=== PATIENT | male | born 1945 | race Caucasian/White ===

== ENCOUNTER 2017-11-04 05:49 | Inpatient (IN) ==
[2017-11-04] MEDS ORDERED: Heparin - SQ 10,000 UNITS/ML Vial ONE (06:11)
[2017-11-04] MEDS ORDERED: Dextrose 50% in Water 50 ML Vial IV.PUSH PRN ×2 (06:29→12:20)
[2017-11-04] MEDS ORDERED: Chlorhexidine 4% Topical 120 APPLIC/120 ML Bottle TOPICAL SCH (06:30)
[2017-11-04] MEDS: Metoprolol Tartrate 25 MG Tablet PO SCH (06:38)
[2017-11-04] MEDS ORDERED: Metoprolol Tartrate 25 MG Tablet PO ONE (06:43)
[2017-11-04] MEDS ORDERED: Chlorhexidine Gluconate 2% 1 Pack (2 Cloths) TOPICAL ONE (06:43)
[2017-11-04] MEDS ORDERED: Sodium Chlor 0.9% Inj 500 ML IV.SIG SCH (07:00)
[2017-11-04] MEDS ORDERED: ceFAZolin Inj 2,000 MG in Sodium Chlor 0.9% Inj 80 ML IV.SIG SCH (07:00)
[2017-11-04] MEDS ORDERED: Insulin Regular (For Infusion) 100 UNIT in Sodium Chlor 0.9% Inj 99 ML IV.CONT PRN (07:00)
[2017-11-04] MEDS ORDERED: Sodium Chlor 0.9% Inj 300 ML IV.CONT ONE (07:30)
[2017-11-04] MEDS ORDERED: Sodium Chlor 0.9% Inj 77.5 ML, Papaverine Inj 60 MG, Nitroglycerin Inj 100 MCG, dilTIAZ... IRRIGATION SCH ×3 (07:30)
[2017-11-04] MEDS ORDERED: Tranexamic Acid Inj 1,000 MG/10 ML Ampul IV.SIG ONE (07:30)
[2017-11-04] MEDS ORDERED: Sodium Chlor 0.9% Inj 750 ML IV.CONT ONE (07:30)
[2017-11-04] MEDS ORDERED: Sodium Chloride 0.9% Irr Bot 500 ML, ceFAZolin Inj 500 MG IRRIGATION SCH ×2 (07:30)
[2017-11-04] MEDS ORDERED: Heparin - SQ 10,000 UNITS/ML Vial OTHER ONE (08:26)
[2017-11-04] MEDS ORDERED: Potassium Chloride Inj 40 MEQ/20 ML Vial ONE ×3 (08:33→12:09)
--- NOTE | 2017-11-04 11:36 | P.PNCV ---
- Note Subjective/Hospital Course: 71-year-old gentleman initially seen 10/22/17 with a history of factor V Leiden mutation (heterozygous), who presents with a progressive history of increasing shortness of breath with minimal exertion. Patient has been seen and evaluated by Dr. Schulz in the office and has undergone further workup including an echocardiogram which reveals preserved ventricular function with mild aortic stenosis. Patient underwent a coronary angiography today which revealed severe multivessel coronary artery disease with heavily calcific coronary vessels. We were consulted for surgical revascularization therapy. PMH : Aortic stenosis, Bipolar DZ, CHF, Diabetes, frequent falls GERD, Hyperlipidemia , Schizophrenia 11/04 pt electively admitted for surgery Objective: Vital Signs - 24 hr 11/04/17 06:54 Temperature 97.7 F Pulse Rate 83 Respiratory Rate 18 Blood Pressure 142/84 H Pulse Oximetry 96 Labs: Laboratory Results - last 12 hr 11/04/17 06:25 Blood Type B Positive Antibody Screen Negative MTS Gel Crossmatch See Detail - Plan (2) CAD (coronary artery disease), [place] coronary artery (4) Diabetes mellitus (2) CAD (coronary artery disease), [place] coronary artery Qualifiers: [place] vs. transplanted heart: [place] heart (4) Diabetes mellitus Qualifiers: Diabetes mellitus type: type 2
[2017-11-04] MEDS ORDERED: Protamine Sulfate Inj 50 MG/5 ML Vial IV.PUSH ONE (11:38)
[2017-11-04] MEDS ORDERED: Sugammadex Inj 200 MG/2 ML Vial IV.PUSH ONE (11:44)
[2017-11-04] MEDS ORDERED: Dexmedetomidine Inj 200 MCG/2 ML Vial IV.CONT ONE (11:45)
[2017-11-04] MEDS ORDERED: Metoprolol Inj 5 MG/5 ML Vial IV.PUSH PRN (12:20)
[2017-11-04] MEDS ORDERED: Post-op Orders (for Pharmacy) OTHER STA (12:20)
[2017-11-04] MEDS ORDERED: Ketorolac Inj 30 MG/ML (IVP) Vial IV.PUSH PRN (12:20)
[2017-11-04] MEDS ORDERED: Dexmedetomidine Inj 200 MCG in Sodium Chlor 0.9% Inj 48 ML IV.CONT PRN (12:20)
[2017-11-04] MEDS ORDERED: Albumin Human 5% Inj 250 ML IV.SIG PRN (12:20)
[2017-11-04] MEDS ORDERED: Magnesium Sulfate Inj 2 GM in Sodium Chlor 0.9% Inj 96 ML IV.SIG PRN ×4 (12:20)
[2017-11-04] MEDS ORDERED: RESP: Racemic Epinephrine 2.25% 0.5 ML Neb NEB PRN (12:20)
[2017-11-04] MEDS ORDERED: Calcium Chloride Inj 1 GM/10 ML Syringe IV.PUSH PRN (12:20)
[2017-11-04] MEDS ORDERED: Acetaminophen 325 MG Tablet PO PRN (12:20)
[2017-11-04] MEDS ORDERED: Clevidipine Inj 25 MG/50 ML VIAL IV.CONT PRN (12:20)
[2017-11-04] MEDS ORDERED: Acetaminophen 650 MG Supp RECTAL PRN (12:20)
[2017-11-04] MEDS ORDERED: Morphine Sulfate Inj 2 MG/ML Vial IV.PUSH PRN (12:20)
[2017-11-04] MEDS ORDERED: fentaNYL Citrate Inj 100 MCG/2 ML Ampul IV.PUSH PRN (12:20)
[2017-11-04] MEDS ORDERED: Potassium Chlor 20 mEq Premix 20 MEQ/100 ML PIGGYBACK IV.SIG PRN ×3 (12:20)
--- NOTE | 2017-11-04 12:20 | P.OP ---
Date of procedure: 11/04/17 Anesthesia: GETA Surgeon: Alma Durham MD Operation and Findings: PREPROCEDURE DIAGNOSES 1. Severe Multi Vessel Coronary Artery Disease. 2. Mild aortic stenosis POSTPROCEDURE DIAGNOSES Same SURGICAL PROCEDURE 1. Off-pump Coronary Artery Bypass Grafting x 3 with Left Internal Mammary Artery (BANDA) to Left Anterior Descending (LAD), reverse saphenous vein graft to Obtuse Marginal branch of the Left Circumflex artery, reverse saphenous vein graft to the Posterolateral branch of the Right Coronary artery 2. Left leg Endoscopic Vein [place] 3. Intraoperative Vein Mapping. SURGEON Alma Durham MD CHECKER IN Ty Sung, MARY Flowers, [facility] ANESTHESIA General endotracheal SALES SUPPORT MANAGER Tracey Vergara, PARVEEN Barker MD PREPARATION ChloraPrep. COUNTS Needle, sponge, and instrument counts were correct. DRAINS Two 32-[place] mediastinal tubes. COMPLICATIONS None. INDICATIONS FOR PROCEDURE The patient is a 71-year-old presenting with chest pain. Patient was noted to have multi-vessel coronary artery disease. The patient is being brought to the operating room for surgical revascularization therapy. PROCEDURE Patient was brought to the operating room and placed supine on the OR table. Following the induction of adequate general endotracheal anesthesia and placement of appropriate monitoring devices, intraoperative vein mapping was performed which revealed good-caliber conduit in bilateral lower extremities. Intraoperative SARA revealed mild to moderate aortic stenosis with trivial aortic insufficiency. The noncoronary leaflet appeared calcified with the other 2 leaflets were mobile. I reviewed the SARA with Dr. Schulz in the operating room, and it was a collective decision to leave the aortic valve alone at this time since he was more towards the mild side. The patient was then prepped and draped in standard sterile fashion. Next, 2500 units of intravenous heparin was given. The left greater saphenous vein was harvested endoscopically. This appeared to be a useable-caliber conduit. Simultaneously, a median sternotomy was performed and the left internal mammary artery dissected free off the posterior sternal table. The patient was systemically heparinized and anticoagulation monitored by serial ACT measurements. The internal mammary artery had excellent pulsatile flow in it and was a good- caliber conduit. The pericardium was then divided in the midline, the cradle created and targets analyzed. At this point, all anastomoses were performed in a beating-heart fashion using the [employer] stabilizing system. The left internal mammary artery was anastomosed to the distal LAD (2.25 mm) in an end-to-side fashion using 7-0 Prolene. Of note, the proximal and mid LAD were completely and diffusely calcified. Segment of saphenous vein graft was then anastomosed to the OM1 (1.75 mm) in an end-to-side fashion using 7-0 Prolene. This was a very heavily calcified vessel as well. The final segment was anastomosed to the RPLB (1.75 mm) in an end-to-side fashion using 7-0 Prolene. The proximal anastomoses were then constructed to the ascending aorta in a running manner using 6-0 Prolene. All anastomotic sites were inspected and appeared to be hemostatic and patent. Protamine solution was given. Strict hemostasis was assured. The closure was undertaken. 2 chest tubes were placed. The pericardium was reapproximated in the midline. The sternum was approximated using sternal wires. The muscular and fascial layer were then closed in 3 layers. The endoscopic vein harvest site was closed in 2 layers. The patient tolerated the procedure well and was transferred to CVICU in stable condition.
[2017-11-04] MEDS: Insulin Regular (For Infusion) 100 UNIT in Sodium Chlor 0.9% Inj 99 ML IV.CONT PRN (12:45)
[2017-11-04] MEDS ORDERED: fentaNYL Citrate Inj 250 MCG/5 ML Ampul ONE (13:02)
--- NOTE | 2017-11-04 13:23 | XR ---
EXAM DATE: 11/04/2017 1:10 PM EDT AGE/SEX: 71 years / Male INDICATIONS: Post CABG. CLINICAL DATA: This is the patient's initial encounter. Patient reports that signs and symptoms have been present for 1 day and indicates a pain score of Nonresponsive. MEDICAL/SURGICAL HISTORY: Cardiovascular disease. None. COMPARISON: [facility], CHEST 2V PA&LAT, 10/22/2017. . FINDINGS: Median sternotomy wires are noted status post fracture noted. Chest tubes are noted. There is no evid ence of pneumothorax. Left basilar atelectasis is noted. A nasogastric tube has its tip in the distal esophagus. An endotracheal tube has its tip 3 cm above the brian. Right-sided central line has its tip at the junction of the superior vena cava and right atrium. CONCLUSION: 1. Left basilar atelectasis. 2. Nasogastric tube has its tip in the distal esophagus. 3. Endotracheal tube, right-sided central line and chest tubes are in good positions. Electronically signed by: James Banks MD 11/04/2017 1:21 PM EDT
[2017-11-04] MEDS: Calcium Chloride Inj 1 GM in Sodium Chlor 0.9% Inj 100 ML IV.SIG PRN ×3 (13:58→16:20)
--- NOTE | 2017-11-04 14:13 | P.DCO ---
- Diagnosis (2) CAD (coronary artery disease), [place] coronary artery (4) Diabetes mellitus - Home Health Nursing Order: Medical education, Signs/symptoms of disease process, Wound care and dressing changes, Nursing assessment with vital signs Instructions: Heart and Vascular Surgery patients *Special attention to sternal dressing Mandatory frequency Assess and evaluation, 4 days in a row The next week 3X week 2 times a week for 4 weeks 1 time a week for 5 weeks Schedule Heart and Vascular patients for full 60 day certification period Initial visit Review Open Heart Surgery Discharge Instructions (Sternal precautions, Activity, Elastic hose, Incision care, Driving, Incentive spirometry, Smoking, [place], Work and other) Need Betadine to paint incision Medication reconciliation Importance of follow up care/ check on appointments Make calendar record temperature daily When to call [facility] at Home nurse, review instructions, phone list Incentive Spirometry, demonstration Visit 1- Begin discharge instruction for patient family and/ or caregiver using teach back method- Signs and symptoms of infection Disease characteristics Medicines and side effects Foods and nutrition/ appetite Infection control/ hand washing/ hygiene Visit 2- Continue teaching Discharge instructions- include additional information on smoking cessation , sternal dressing (sternal vac) Visit 3- Continue teaching- Cough and deep breathing, incision monitoring. Choose my plate Visit 4- Continue teaching- Discuss limitations Discuss how they are feeling Discuss progress toward goals Remaining visits- continue teaching and monitoring For any questions please call : Thursday 8am-5pm Heart & Vascular Surgery Office ( Dr. Durham & Dr. Jo), After Hours / Nights (5pm -8am) Weekends and Holidays Please call [facility] Cardiac Intermediate Care Unit (CIC) Charge Nurse PREVENA Single Use Negative Wound Therapy System Caregiver Instruction Sheet 1. A Prevena dressing system was applied to the chest incision during surgery , to promote wound healing. It works via a suction device (negative pressure wound therapy) to remove low to moderate levels of exudate (drainage) and infectious materials. We recommend that the device stay in place for up to seven days, from day of surgery. 2. Day of Surgery___/ Day of Removal ____/ 3. The dressing should only be removed by a health clinical care coordinator. Please arrange removal of device to coincide with Home Health visit and or with Nursing staff at Rehab 4. If skin reddening or irritation of skin occurs, or excessive drainage, please notify the Cardiovascular Surgeons office at [phone]. 5. Light showering is permissible; however the pump should be disconnected and placed in safe location, where it will not get wet. The dressing should not be exposed to direct spray or submerged in water. No bath tub / shower only. Ensure the end of the tubing attached to the dressing is facing down so that water does not enter the top of the tube. 6. To remove Prevena dressing: press purple button to turn off device / remove the suction. Then disconnect the tubing from the pump. The fixation strips should be stretched away from the skin and the dressing lifted at one corner and peeled back until it has been fully removed. 7. After removal, it is ok to shower daily using liquid dial soap and clean wash cloth, rinse and pat dry, and leave incision open to air dry. For any concerns regarding Prevena dressing, and or wounds, please contact Ines Jameson, patient navigator at [phone] or notify the Cardiovascular Surgeons office at [phone]. Incentive spirometry Q1 hr x 10, while awake, also use acapella device hourly whole awake Sternal Breast Bone Precautions: NO pushing or pulling, ( pt must use sternal pillow to support chest with all activities and with coughing ( takes up to 3 months breast bone to heal ) Daily incision care: ok to shower daily, no tub bath. Wash all incisions with liquid dial soap, clean wash cloth to each site, rinse and pat dry. Observe for any signs of infection, such as drainage which is dark yellow, payan, green or foul smelling. Immediately report to the surgeon any drainage from the chest incision, or legs, and for any abnormal drainage from the chest tube sites. Notify surgeon if any temp >101.5 degrees F. When specialty dressing removed/ or if you do not have one, continue to shower daily as above, then rinse and pat incision dry and paint with betadine daily x 5 days. Allow steri strips to fall off if you have any. Avoid lotions, creams, salves, oils, etc. for the first month Please see attached forms for additional instructions regarding post Open Heart specialty wound vacuum dressings. MEAGHAN or Prevena , Dressing to be removed by Nursing staff on F/U appointment: as per DC instructions: PCP in 2 weeks, CV surgeon 2 weeks, Clutch Inspector 3-4 weeks For any questions regarding incisions/ dressing / meds / post op care or above Symptoms, Thursday 8am-5pm Heart & Vascular Surgery Office ( Dr. Durham & Dr. Jo), After Hours / Nights (5pm -8am) Weekends and Holidays Please call [facility] Cardiac Intermediate Care Unit (CIC) Charge Nurse - Case Management Consult Yes - Certification I have seen patient Silvestre Álvarez on 11/04/17. My clinical findings support the need for the requested home health care services because: Deconditioned with increased weakness I certify that my clinical findings support that this patient is homebound because: Post-op weakness (2) CAD (coronary artery disease), [place] coronary artery Qualifiers: [place] vs. transplanted heart: [place] heart (4) Diabetes mellitus Qualifiers: Diabetes mellitus type: type 2
[2017-11-04] MEDS: ceFAZolin Inj 2,000 MG in Sodium Chlor 0.9% Inj 80 ML IV.SIG SCH (20:11)
[2017-11-04] MEDS: Amiodarone 200 MG Tablet PO SCH (20:12)
[2017-11-05] MEDS: Calcium Chloride Inj 1 GM in Sodium Chlor 0.9% Inj 100 ML IV.SIG PRN (00:18)
[2017-11-05] MEDS: Insulin Regular (For Infusion) 100 UNIT in Sodium Chlor 0.9% Inj 99 ML IV.CONT PRN (00:19)
[2017-11-05] MEDS: ceFAZolin Inj 2,000 MG in Sodium Chlor 0.9% Inj 80 ML IV.SIG SCH ×3 (03:00→20:55)
[2017-11-05 05:36] LABS: Hemoglobin 15.1 gm/dL (13.0-17.0); Mean Corpuscular Hemoglobin 31.7 pg (27.0-34.0); Mean Corpuscular Volume 88.2 fL (80.0-100.0); Mean Platelet Volume 6.7 fL (7.0-11.0); Platelet Count 190 th/mm3 (150-450); Red Blood Count 4.76 mil/mm3 (4.50-5.90); Red Cell Distribution Width 12.9 % (11.6-17.2); White Blood Count 12.5 th/mm3 (4.0-11.0)
--- NOTE | 2017-11-05 06:02 | XR ---
EXAM DATE: 11/05/2017 4:12 AM EDT AGE/SEX: 71 years / Male INDICATIONS: Follow up CABG. CLINICAL DATA: This is the patient's subsequent encounter. Patient reports that signs and symptoms h ave been present for 3 days and indicates a pain score of 5/10. MEDICAL/SURGICAL HISTORY: Cardiovascular disease. CABG. COMPARISON: [facility], CHEST 1V SINGLE AP, 11/04/2017. . FINDINGS: There has been interval extubation and removal of nasogastric tube. Central line and thoracostomy tub es remain in place. Lung volumes are diminished with mild perihilar and basilar parenchymal opacity, left worse than right. Visualized cardiac contours are unchanged. CONCLUSION: Interval extubation with slight deterioration in aeration. Electronically signed by: Ty Juarez MD 11/05/2017 6:01 AM EDT
[2017-11-05 06:06] LABS: Anion Gap 11 meq/L (5-15); Blood Urea Nitrogen 16 mg/dL (7-18); Calcium 8.5 mg/dL (8.5-10.1); Chloride 107 meq/L (98-107); Glomerular Filtration Rate Greater Than 89 mL/min (>89); Glucose,Random 126 mg/dL (74-106); Magnesium 2.1 mg/dL (1.5-2.5); Potassium 3.9 meq/L (3.5-5.1); Sodium 141 meq/L (136-145)
[2017-11-05] MEDS: Amiodarone 200 MG Tablet PO SCH ×2 (08:16→20:55)
[2017-11-05] MEDS ORDERED: Dextrose 50% in Water 50 ML Vial IV.PUSH PRN (08:52)
[2017-11-05] MEDS ORDERED: Bisacodyl 10 MG Supp RECTAL PRN (08:52)
[2017-11-05] MEDS ORDERED: Sod Phosphate/Sod Biphosphate (Adult) Enema 133 ML Bottle RECTAL PRN (08:52)
--- NOTE | 2017-11-05 09:09 | P.PNCV ---
- Note Subjective/Hospital Course: 71-year-old gentleman initially seen 10/22/17 with a history of factor V Leiden mutation (heterozygous), who presents with a progressive history of increasing shortness of breath with minimal exertion. Patient has been seen and evaluated by Dr. Schulz in the office and has undergone further workup including an echocardiogram which reveals preserved ventricular function with mild aortic stenosis. Patient underwent a coronary angiography today which revealed severe multivessel coronary artery disease with heavily calcific coronary vessels. We were consulted for surgical revascularization therapy. PMH : Aortic stenosis, Bipolar DZ, CHF, Diabetes, frequent falls GERD, Hyperlipidemia , Schizophrenia 11/04 pt electively admitted for surgery surgery: 11/04 SURGICAL PROCEDURE 1. Off-pump Coronary Artery Bypass Grafting x 3 with Left Internal Mammary Artery (BANDA) to Left Anterior Descending (LAD), reverse saphenous vein graft to Obtuse Marginal branch of the Left Circumflex artery, reverse saphenous vein graft to the Posterolateral branch of the Right Coronary artery 2. Left leg Endoscopic Vein [place] extubated after surgery crystalloid 3500cc, cell saver 561, EBL 1000cc 11/05 doing well, on nasal cannula no air leak in chest tubes start BB , in NSR , BP stable wean off Insulin gtt stable for transfer to stepdown Objective: Vital Signs - 24 hr 11/04/17 12:45 11/04/17 13:15 11/04/17 14:00 Temperature 97.6 F 98.0 F Pulse Rate 77 71 77 Respiratory Rate 12 8 L Blood Pressure 99/48 L 118/60 Pulse Oximetry 98 98 11/04/17 15:00 11/04/17 15:30 11/04/17 16:15 Temperature 98.6 F 97.9 F Pulse Rate 82 Respiratory Rate 10 L Blood Pressure 130/66 Pulse Oximetry 97 97 11/04/17 16:28 11/04/17 16:35 11/04/17 17:47 Temperature Pulse Rate 76 77 Respiratory Rate 20 Blood Pressure Pulse Oximetry 97 11/04/17 18:00 11/04/17 19:00 11/04/17 19:52 Temperature 98.6 F 100.3 F H Pulse Rate 86 88 Respiratory Rate 22 18 Blood Pressure 131/76 Pulse Oximetry 96 97 11/04/17 20:26 11/04/17 23:00 11/04/17 23:12 Temperature 100.4 F H 98.6 F Pulse Rate 93 H Respiratory Rate 22 22 Blood Pressure 136/81 Pulse Oximetry 96 11/05/17 03:00 11/05/17 07:00 Temperature 98.4 F 98.6 F Pulse Rate 96 H 86 Respiratory Rate 22 18 Blood Pressure 127/80 110/57 L Pulse Oximetry 96 96 GENERAL: A&O x 3 SKIN: Warm and dry. prevena dressing to chest , vazquez wrap to left leg HEAD: Normocephalic. EYES: No scleral icterus. No injection or drainage. NECK: Supple, trachea midline. No JVD or lymphadenopathy. CARDIOVASCULAR: Regular rate and rhythm without murmurs, gallops, or rubs. no edema RESPIRATORY: Breath sounds equal bilaterally. No accessory muscle use. chest tube to wall suction, no air leak / drained 190cc/ 12 hrs GASTROINTESTINAL: Abdomen soft, non-tender, nondistended. MUSCULOSKELETAL: No cyanosis, or edema. BACK: Nontender without obvious deformity. No CVA tenderness. Labs: Laboratory Results - last 12 hr 11/04/17 11/04/17 11/05/17 21:24 22:23 00:21 WBC RBC Hgb Hct MCV MCH MCHC RDW Plt Count MPV Sodium Potassium Chloride Carbon Dioxide Anion Gap BUN Creatinine Estimated GFR POC Glucose 121 H 119 H 119 H Random Glucose Calcium Magnesium 11/05/17 11/05/17 11/05/17 01:23 04:10 05:00 WBC 12.5 H RBC 4.76 Hgb 15.1 Hct 42.0 MCV 88.2 MCH 31.7 MCHC 36.0 RDW 12.9 Plt Count 190 MPV 6.7 L Sodium Potassium Chloride Carbon Dioxide Anion Gap BUN Creatinine Estimated GFR POC Glucose 108 126 H Random Glucose Calcium Magnesium 11/05/17 11/05/17 11/05/17 05:00 05:45 07:16 WBC RBC Hgb Hct MCV MCH MCHC RDW Plt Count MPV Sodium 141 Potassium 3.9 Chloride 107 Carbon Dioxide 23.0 Anion Gap 11 BUN 16 Creatinine 0.84 Estimated GFR Greater than 89 POC Glucose 122 H 116 H Random Glucose 126 H Calcium 8.5 Magnesium 2.1 Result Diagrams: 11/05/17 05:00 11/05/17 05:00 Pulmonary: NSR with occasional PVC - Plan (2) CAD (coronary artery disease), [place] coronary artery Plan: ASA, statin, BB , plavix OOB ambulate pulm toileting no diuresis transfer to stepdown (3) Factor V Leiden mutation Plan: HGB , plt stable (4) Diabetes mellitus Plan: on insulin sliding scale diabetic diet start metformin in am (2) CAD (coronary artery disease), [place] coronary artery Qualifiers: [place] vs. transplanted heart: [place] heart (4) Diabetes mellitus Qualifiers: Diabetes mellitus type: type 2
[2017-11-05] MEDS: Multivitamin/Minerals Therapeutic Tablet PO SCH (09:20)
[2017-11-05] MEDS: Metoprolol Tartrate 25 MG Tablet PO SCH ×3 (09:20→23:01)
--- NOTE | 2017-11-05 09:43 | P.DIET ---
Nutritional Evaluation Screening comments: MDC for diet education s/p CABG x 3 on 11/04 received. Patient Navigator to provide education. Consult RD if complexities with diet education arise.
[2017-11-05] MEDS: Insulin NovoLOG Aspart Correctional Sugar Inj SQ SCH ×4 (11:50→23:03)
--- NOTE | 2017-11-05 20:48 | ECG ---
Date Performed: 11/05/2017 Time Performed: 04:42:40 PTAGE: 71 years EKG: Sinus rhythm Severe right axis deviation Possible inferior infarct - age undetermined Right bundle branch block S luis the previous tracing, no significant change noted Abnormal ECG PREVIOUS TRACING : 10/22/2017 12.45 DOCTOR: Daniel Leach Interpretating Date/Time 11/05/2017 20:48:10
[2017-11-05] MEDS: Docusate Sodium 100 MG Capsule PO SCH (20:56)
[2017-11-06] MEDS: Insulin NovoLOG Aspart Correctional Sugar Inj SQ SCH ×5 (02:54→22:00)
[2017-11-06] MEDS: ceFAZolin Inj 2,000 MG in Sodium Chlor 0.9% Inj 80 ML IV.SIG SCH (05:39)
[2017-11-06 07:04] LABS: Baso % (Auto) 0.2 % (0.0-2.0); Eos % (Auto) 0.1 % (0.0-4.0); Hematocrit 41.6 % (39.0-51.0); Hemoglobin 14.8 gm/dL (13.0-17.0); Lymph # (Auto) 1.1 th/mm3 (1.0-4.8); Lymph % (Auto) 8.1 % (9.0-44.0); Mean Corpuscular HGB Conc 35.6 % (32.0-36.0); Mean Corpuscular Hemoglobin 31.9 pg (27.0-34.0); Mean Corpuscular Volume 89.6 fL (80.0-100.0); Mean Platelet Volume 6.7 fL (7.0-11.0); Mono # (Auto) 1.1 th/mm3 (0.0-0.9); Neut # (Auto) 11.6 th/mm3 (1.8-7.7); Neut % (Auto) 83.6 % (16.0-70.0); Platelet Count 182 th/mm3 (150-450); Red Blood Count 4.65 mil/mm3 (4.50-5.90); White Blood Count 13.8 th/mm3 (4.0-11.0)
[2017-11-06 07:07] LABS: Anion Gap 9 meq/L (5-15); Blood Urea Nitrogen 21 mg/dL (7-18); Calcium 8.4 mg/dL (8.5-10.1); Carbon Dioxide 26.9 meq/L (21.0-32.0); Chloride 105 meq/L (98-107); Glomerular Filtration Rate Greater Than 89 mL/min (>89); Glucose,Random 135 mg/dL (74-106); Magnesium 2.2 mg/dL (1.5-2.5); Potassium 3.8 meq/L (3.5-5.1); Sodium 141 meq/L (136-145)
[2017-11-06] MEDS: Multivitamin/Minerals Therapeutic Tablet PO SCH (08:36)
[2017-11-06] MEDS: Amiodarone 200 MG Tablet PO SCH ×2 (08:36→21:45)
[2017-11-06] MEDS: Docusate Sodium 100 MG Capsule PO SCH ×2 (08:36→21:45)
[2017-11-06] MEDS: Polyethylene Glycol 3350 17 GM Packet PO SCH (08:37)
[2017-11-06] MEDS: Metoprolol Tartrate 25 MG Tablet PO SCH ×3 (08:39→21:45)
--- NOTE | 2017-11-06 11:34 | P.PNCV ---
- Note Subjective/Hospital Course: 71-year-old gentleman initially seen 10/22/17 with a history of factor V Leiden mutation (heterozygous), who presents with a progressive history of increasing shortness of breath with minimal exertion. Patient has been seen and evaluated by Dr. Schulz in the office and has undergone further workup including an echocardiogram which reveals preserved ventricular function with mild aortic stenosis. Patient underwent a coronary angiography today which revealed severe multivessel coronary artery disease with heavily calcific coronary vessels. We were consulted for surgical revascularization therapy. PMH : Aortic stenosis, Bipolar DZ, CHF, Diabetes, frequent falls GERD, Hyperlipidemia , Schizophrenia 11/04 pt electively admitted for surgery surgery: 11/04 SURGICAL PROCEDURE 1. Off-pump Coronary Artery Bypass Grafting x 3 with Left Internal Mammary Artery (BANDA) to Left Anterior Descending (LAD), reverse saphenous vein graft to Obtuse Marginal branch of the Left Circumflex artery, reverse saphenous vein graft to the Posterolateral branch of the Right Coronary artery 2. Left leg Endoscopic Vein [place] extubated after surgery crystalloid 3500cc, cell saver 561, EBL 1000cc 11/05 doing well, on nasal cannula no air leak in chest tubes start BB , in NSR , BP stable wean off Insulin gtt stable for transfer to stepdown 11/06 up in chair, on room air chest tubes removed without difficulty increase BB, start home TARA in am resume metformin / possible dc Thursday Objective: Vital Signs - 24 hr 11/05/17 12:00 11/05/17 12:47 11/05/17 13:25 Temperature Pulse Rate 86 87 Respiratory Rate Blood Pressure Pulse Oximetry 97 11/05/17 13:36 11/05/17 14:00 11/05/17 14:54 Temperature 98.4 F Pulse Rate 88 92 H 90 Respiratory Rate 18 16 Blood Pressure 135/74 Pulse Oximetry 93 L 11/05/17 15:00 11/05/17 16:20 11/05/17 17:16 Temperature Pulse Rate 96 H 103 H 106 H Respiratory Rate Blood Pressure Pulse Oximetry 11/05/17 18:13 11/05/17 19:00 11/05/17 20:00 Temperature 98.3 F Pulse Rate 104 H 110 H 110 H Respiratory Rate 16 Blood Pressure 133/79 Pulse Oximetry 91 L 11/05/17 20:25 11/05/17 21:00 11/05/17 22:00 Temperature Pulse Rate 114 H 114 H 100 H Respiratory Rate 24 Blood Pressure Pulse Oximetry 11/05/17 23:00 11/06/17 00:00 11/06/17 01:00 Temperature 98 F Pulse Rate 95 H 84 88 Respiratory Rate 18 Blood Pressure 127/84 Pulse Oximetry 91 L 11/06/17 02:00 11/06/17 03:00 11/06/17 04:00 Temperature 98.2 F Pulse Rate 86 91 H 87 Respiratory Rate 20 Blood Pressure 132/74 Pulse Oximetry 96 11/06/17 05:00 11/06/17 06:00 11/06/17 07:00 Temperature 98.6 F Pulse Rate 93 H 92 H 95 H Respiratory Rate 17 Blood Pressure 130/73 Pulse Oximetry 95 11/06/17 08:25 Temperature Pulse Rate 88 Respiratory Rate 18 Blood Pressure Pulse Oximetry 97 GENERAL: A&O x 3 SKIN: Warm and dry. prevena dressing to chest / left leg incision intact well approximated HEAD: Normocephalic. EYES: No scleral icterus. No injection or drainage. NECK: Supple, trachea midline. No JVD or lymphadenopathy. CARDIOVASCULAR: Regular rate and rhythm without murmurs, gallops, or rubs. RESPIRATORY: Breath sounds equal bilaterally. No accessory muscle use. chest tube removed without difficulty GASTROINTESTINAL: Abdomen soft, non-tender, nondistended. MUSCULOSKELETAL: No cyanosis, or edema. BACK: Nontender without obvious deformity. No CVA tenderness. Labs: Laboratory Results - last 12 hr 11/06/17 11/06/17 11/06/17 02:40 05:45 05:45 WBC 13.8 H RBC 4.65 Hgb 14.8 Hct 41.6 MCV 89.6 MCH 31.9 MCHC 35.6 RDW 13.0 Plt Count 182 MPV 6.7 L Neut % (Auto) 83.6 H Lymph % (Auto) 8.1 L Dawson % (Auto) 8.0 Eos % (Auto) 0.1 Baso % (Auto) 0.2 Neut # (Auto) 11.6 H Lymph # (Auto) 1.1 Dawson # (Auto) 1.1 H Eos # (Auto) 0.0 Baso # (Auto) 0.0 WBC Differential . Differential Comment Auto diff final Sodium 141 Potassium 3.8 Chloride 105 Carbon Dioxide 26.9 Anion Gap 9 BUN 21 H Creatinine 0.83 Estimated GFR Greater than 89 POC Glucose 139 H Random Glucose 135 H Calcium 8.4 L Magnesium 2.2 11/06/17 11/06/17 06:46 07:52 WBC RBC Hgb Hct MCV MCH MCHC RDW Plt Count MPV Neut % (Auto) Lymph % (Auto) [place] % (Auto) Eos % (Auto) Baso % (Auto) Neut # (Auto) Lymph # (Auto) Dawson # (Auto) Eos # (Auto) Baso # (Auto) WBC Differential Differential Comment Sodium Potassium Chloride Carbon Dioxide Anion Gap BUN Creatinine Estimated GFR POC Glucose 146 H 162 H Random Glucose Calcium Magnesium Result Diagrams: 11/06/17 05:45 11/06/17 05:45 - Plan (1) S/P CABG x 3 Plan: ASA, statin , plavix , amiodarone OOB, ambulate pulm toileting chest tubes dc CM eval for [facility] (2) CAD (coronary artery disease), [place] coronary artery Plan: ASA, statin, BB , plavix OOB ambulate pulm toileting no diuresis transfer to stepdown (3) Factor V Leiden mutation Plan: HGB , plt stable (4) Diabetes mellitus Plan: on insulin sliding scale diabetic diet start metformin (5) Bipolar 1 disorder Plan: home meds resumed (2) CAD (coronary artery disease), [place] coronary artery Qualifiers: [place] vs. transplanted heart: [place] heart (4) Diabetes mellitus Qualifiers: Diabetes mellitus type: type 2
[2017-11-06 16:03] VITALS: O2SAT 92
--- NOTE | 2017-11-07 05:23 | XR ---
EXAM DATE: 11/07/2017 5:16 AM EDT AGE/SEX: 71 years / Male INDICATIONS: Shortness of breath, possible pneumothorax. CLINICAL DATA: This is the patient's subsequent encounter. Patient reports that signs and symptoms h ave been present for 4 - 6 days and indicates a pain score of 3/10. MEDICAL/SURGICAL HISTORY: Cardiovascular disease. CABG. COMPARISON: [facility] [place] 1V SINGLE AP, 11/05/2017. . FINDINGS: Mild basilar predominant parenchymal consolidation again noted, left more so than right but both side s are improved in the interim. No large effusion. No left pneumothorax seen. There is some lucency of the right upper lung but without a perceptible pleural reflection. Mediastinal drain and left chest tube has been removed. Right internal jugular central venous cathete r remains in place. CONCLUSION: 1. Improving bibasilar atelectasis. 2. Questionable right pneumothorax although a distinct pleural reflection is not demonstrated. 3. Mediastinal drain and left chest tube removed in the interim. Electronically signed by: Ty Pérez MD 11/07/2017 5:21 AM EDT
[2017-11-07] MEDS ORDERED: Lisinopril 5 MG Tablet PO SCH (09:00)
[2017-11-07] MEDS: Docusate Sodium 100 MG Capsule PO SCH (09:44)
[2017-11-07] MEDS: Multivitamin/Minerals Therapeutic Tablet PO SCH (09:44)
[2017-11-07] MEDS: Metoprolol Tartrate 25 MG Tablet PO SCH (09:45)
[2017-11-07] MEDS: Amiodarone 200 MG Tablet PO SCH (09:45)
[2017-11-07] MEDS: Polyethylene Glycol 3350 17 GM Packet PO SCH (09:46)
[2017-11-07] MEDS: Insulin NovoLOG Aspart Correctional Sugar Inj SQ SCH (09:54)
--- NOTE | 2017-11-07 11:12 | P.DS ---
Date of admission: 11/04/17 05:49 Primary care physician: No Primary Care Physician Attending physician on discharge: Alma Durham Anticipated date of discharge: 11/07/17 Brief History from admission: 71-year-old gentleman initially seen 10/22/17 with a history of factor V Leiden mutation (heterozygous), who presents with a progressive history of increasing shortness of breath with minimal exertion. Patient has been seen and evaluated by Dr. Schulz in the office and has undergone further workup including an echocardiogram which reveals preserved ventricular function with mild aortic stenosis. Patient underwent a coronary angiography today which revealed severe multivessel coronary artery disease with heavily calcific coronary vessels. We were consulted for surgical revascularization therapy. PMH : Aortic stenosis, Bipolar DZ, CHF, Diabetes, frequent falls GERD, Hyperlipidemia , Schizophrenia DS: Diagnosis - Discharge Diagnosis (1) CAD (coronary artery disease), yuhaaviatam coronary artery Status: Acute (2) Factor V Leiden mutation Status: Acute (3) Diabetes mellitus Status: Acute (4) Bipolar 1 disorder Status: Acute (5) S/P CABG x 3 Status: Acute DS: Medications - Discharge Medications Prescriptions: amiodarone 200 mg PO Q12HR #28 tab clopidogrel [Plavix] 75 mg PO DAILY #30 tab docusate sodium [DOK] 100 mg PO BID #60 cap hydrocodone-acetaminophen 1 tab PO Q4H PRN #40 tab PRN Reason: Pain Scale 1 To 5 lisinopril 5 mg PO DAILY #30 tab metoprolol tartrate 25 mg PO BID #60 tab DS: Summary Hospital Course: 11/04 pt electively admitted for surgery surgery: 11/04 SURGICAL PROCEDURE 1. Off-pump Coronary Artery Bypass Grafting x 3 with Left Internal Mammary Artery (BANDA) to Left Anterior Descending (LAD), reverse saphenous vein graft to Obtuse Marginal branch of the Left Circumflex artery, reverse saphenous vein graft to the Posterolateral branch of the Right Coronary artery 2. Left leg Endoscopic Vein [place] extubated after surgery crystalloid 3500cc, cell saver 561, EBL 1000cc 11/05 doing well, on nasal cannula no air leak in chest tubes start BB , in NSR , BP stable wean off Insulin gtt stable for transfer to stepdown 11/06 up in chair, on room air chest tubes removed without difficulty increase BB, start home TARA in am resume metformin / possible dc Thursday11/07/17 Doing well, ready for DC - Time Spent with Patient Total time spent providing and/or coordinating discharge services: Greater than 30 minutes - Quality: AMI Clinical Trial Participant: No - Quality: VTE Deep Vein Thrombosis/Pulmonary Embolism Present on Admission: No Exam Vital signs: Vital Signs 11/06/17 12:00 11/06/17 13:00 11/06/17 14:00 Temperature Pulse Rate 113 H 103 H 110 H Respiratory Rate 18 Blood Pressure Pulse Oximetry 11/06/17 15:00 11/06/17 16:00 11/06/17 18:00 Temperature 97.6 F Pulse Rate 105 H 107 H 113 H Respiratory Rate 16 Blood Pressure 149/84 H Pulse Oximetry 92 L 11/06/17 19:00 11/06/17 20:00 11/06/17 20:19 Temperature 97.8 F Pulse Rate 111 H 105 H 105 H Respiratory Rate 16 20 Blood Pressure 116/72 Pulse Oximetry 92 L 11/06/17 20:20 11/06/17 21:00 11/06/17 22:00 Temperature Pulse Rate 107 H 99 H Respiratory Rate Blood Pressure Pulse Oximetry 92 L 11/06/17 23:00 11/07/17 00:00 11/07/17 01:00 Temperature 98.8 F Pulse Rate 102 H 90 91 H Respiratory Rate 16 Blood Pressure 127/74 Pulse Oximetry 92 L 11/07/17 02:00 11/07/17 03:00 11/07/17 04:00 Temperature 98.9 F Pulse Rate 91 H 95 H 91 H Respiratory Rate 16 Blood Pressure 123/66 Pulse Oximetry 92 L 11/07/17 05:00 11/07/17 05:52 11/07/17 07:00 Temperature 97.3 F L Pulse Rate 94 H 95 H 99 H Respiratory Rate 20 Blood Pressure 137/77 Pulse Oximetry 92 L 11/07/17 08:00 11/07/17 08:11 11/07/17 09:00 Temperature Pulse Rate 98 H 98 H 106 H Respiratory Rate 19 Blood Pressure Pulse Oximetry 92 L 11/07/17 10:00 Temperature Pulse Rate 91 H Respiratory Rate Blood Pressure Pulse Oximetry Intake & Output 11/06/17 11/07/17 11/07/17 18:59 06:59 18:59 Intake Total 640 / 640 480 / 480 Output Total 300 / 300 Balance 340 / 340 480 / 480 Weight 89.8 kg Intake: Oral 640 / 640 480 / 480 Output: Urine 300 / 300 Other: # Voids 4 2 Date of Last Bowel Movement 11/06/17 11/07/17 - Constitutional no acute distress - Routine HEENT Exam Head: Present: normocephalic, atraumatic Eye: Present: EOMI, PERRL, normal accommodation ENT: Present: mucous membranes moist - Routine Neck Exam Present: supple, full ROM - Routine Respiratory Exam Present: CTA bilaterally - Routine Cardiovascular Exam Present: RRR - Routine Abdominal Exam Present: soft, normoactive bowel sounds - Routine Extremities Exam Present: pulses intact - Routine Skin Exam Present: intact Comments: wound is clean and dry - Routine Neurological Exam Present: alert, oriented X3 Results Procedures completed during hospitalization: CABG x 3 Labs on day of discharge: Labs from last 24 hours 11/07/17 11/06/17 11/06/17 09:43 20:12 17:00 POC Glucose 185 H 179 H 195 H MTS Gel Crossmatch 11/06/17 11/04/17 11:22 06:25 POC Glucose 185 H MTS Gel Crossmatch See Detail - Impressions ITS Impressions Chest X-Ray 11/07/17 06:00 CONCLUSION: 1. Improving bibasilar atelectasis. 2. Questionable right pneumothorax although a distinct pleural reflection is not demonstrated. 3. Mediastinal drain and left chest tube removed in the interim. Discharge Plan - Discharge Disposition Patient Disposition: /Home Health Service - Discharge Condition Condition: Good - Discharge Order Discharge Orders: Discharge Order (Routine); Ordered 11/07/17 Ordered By: Olga Jo - Discharge Details Anticipated Discharge Date: 11/07/17 - Physicians Team Primary Care Provider: Primary Care Melvina Egan Attending Provider: Alma Durham Other Providers: [facility],Agency - Rxs /Orders / Referrals /Forms Prescriptions: New amiodarone 200 mg Tablet 200 mg PO Q12HR Qty: 28 RF: 0 clopidogrel [Plavix] 75 mg Tablet 75 mg PO DAILY Qty: 30 RF: 2 docusate sodium [DOK] 100 mg Capsule 100 mg PO BID Qty: 60 RF: 0 hydrocodone-acetaminophen 5-325 mg Tablet 1 tab PO Q4H PRN (Reason: Pain Scale 1 To 5) Qty: 40 RF: 0 lisinopril 5 mg Tablet 5 mg PO DAILY Qty: 30 RF: 2 metoprolol tartrate 25 mg Tablet 25 mg PO BID Qty: 60 RF: 2 Continue aspirin [Aspirin Low Dose] 81 mg Tablet,Delayed Release (Dr/Ec) 81 mg PO DAILY Centrum Silver 1 tab PO DAILY cholecalciferol (vitamin D3) [Vitamin D3] 1,000 unit Tablet 2,000 unit PO DAILY metformin 500 mg Tablet Extended Release 24 Hr 500 mg PO AC BREAKFAST simvastatin 20 mg Tablet 20 mg PO QPM Discontinued lisinopril 10 mg Tablet 10 mg PO DAILY nifedipine 60 mg Tablet Extended Release 60 mg PO DAILY No Action furosemide 20 mg Tablet 20 mg PO DAILY Referrals: [facility],Physician [facility] [Non-Staff] - See Instructions ([facility] will call [facility] with appt day and time) John Julien MD [Physician] - See Instructions Tsering Lennon [ADVANCE RN PRACTITIONER] - See Instructions - Discharge Instructions Additional Instructions: HOME HEALTH CARE HAS BEEN ARRANGED WITH '[facility], CONTACT# [phone] PREVENA Single Use Negative Wound Therapy System Caregiver Instruction Sheet 1. A Prevena dressing system was applied to the chest incision during surgery , to promote wound healing. It works via a suction device (negative pressure wound therapy) to remove low to moderate levels of exudate (drainage) and infectious materials. We recommend that the device stay in place for up to seven days, from day of surgery. 2. Day of Surgery____11/04/17 Day of Removal ____11/11/17 3. The dressing should only be removed by a health healthcare facility administrator. Please arrange removal of device to coincide with Home Health visit and or with Nursing staff at Rehab 4. If skin reddening or irritation of skin occurs, or excessive drainage, please notify the Cardiovascular Surgeons office at [phone]. 5. Light showering is permissible; however the pump should be disconnected and placed in safe location, where it will not get wet. The dressing should not be exposed to direct spray or submerged in water. No bath tub / shower only. Ensure the end of the tubing attached to the dressing is facing down so that water does not enter the top of the tube. 6. To remove Prevena dressing: press purple button to turn off device / remove the suction. Then disconnect the tubing from the pump. The fixation strips should be stretched away from the skin and the dressing lifted at one corner and peeled back until it has been fully removed. 7. After removal, it is ok to shower daily using liquid dial soap and clean wash cloth, rinse and pat dry, and leave incision open to air dry. For any concerns regarding Prevena dressing, and or wounds, please contact Ines Jameson, patient navigator at [phone] or notify the Cardiovascular Surgeons office at [phone]. Incentive spirometry Q1 hr x 10, while awake, also use acapella device hourly whole awake Sternal Breast Bone Precautions: NO pushing or pulling, ( pt must use sternal pillow to support chest with all activities and with coughing ( takes up to 3 months breast bone to heal ) Daily incision care: ok to shower daily, no tub bath. Wash all incisions with liquid dial soap, clean wash cloth to each site, rinse and pat dry. Observe for any signs of infection, such as drainage which is dark yellow, payan, green or foul smelling. Immediately report to the surgeon any drainage from the chest incision, or legs, and for any abnormal drainage from the chest tube sites. Notify surgeon if any temp >101.5 degrees F. When specialty dressing removed/ or if you do not have one, continue to shower daily as above, then rinse and pat incision dry and paint with betadine daily x 5 days. Allow steri strips to fall off if you have any. Avoid lotions, creams, salves, oils, etc. for the first month Please see attached forms for additional instructions regarding post Open Heart specialty wound vacuum dressings. MEAGHAN or Prevena , Dressing to be removed by Nursing staff on __11/11/17 F/U appointment: as per DC instructions: PCP in 2 weeks, CV surgeon 2 weeks, Staying Machine Operator 3-4 weeks For any questions regarding incisions/ dressing / meds / post op care or above Symptoms, Thursday 8am-5pm Heart & Vascular Surgery Office ( Dr. Durham & Dr. Jo), After Hours / Nights (5pm -8am) Weekends and Holidays Please call [facility] ([facility]) Charge Nurse
[2017-11-07 12:24] VITALS: BP 131/72; PULSE 89; TEMP 98.2
[2017-11-07 12:30] VITALS: RESP 17
== END 2017-11-07 14:16 | disposition home health service (06) ==
LOC: HSDI 05:49 → HCVI 12:57 → HCPC 11-05 10:01
PROVIDERS: ADMIT Thoracic Surgery (Cardiothoracic Vascular Surgery); ATTEND Thoracic Surgery (Cardiothoracic Vascular Surgery)